=== PATIENT | female | born 1975 | race Asian ===

== ENCOUNTER 2023-05-18 22:04 | Emergency (ER) | payer SELFPAY ==
[~2023-05-18] VITALS: Ht 154.9 cm; Wt 54.4 kg
[2023-05-18 22:24] VITALS: TEMP 98.2
[2023-05-19 00:21] LABS: APPEARANCE,URINE SLIGHTLY CLOUDY (CLEAR); BILIRUBIN,URINE NEGATIVE (NEGATIVE); BLOOD, URINE NEGATIVE Ery/uL (NEGATIVE); COLOR,URINE YELLOW (YELLOW); KETONES,URINE 1+ mg/dL (NEGATIVE); LEUKOCYTE ESTERASE ,URINE NEGATIVE (NEGATIVE); NITRITE, URINE NEGATIVE (NEGATIVE); PREGNANCY TEST URINE QUAL NEGATIVE (NEGATIVE); PROTEIN,URINE NEGATIVE (NEGATIVE); UGLUCOSE NEGATIVE (NEGATIVE)
[2023-05-19 00:23] LABS: ADD URINE CULTURE NO; BACTERIA,URINE Rare /HPF (None Seen); RBC,URINE 0-2 /HPF (0-2); SQUAMOUS EPITHELIAL CELL,UR Few /HPF (None Seen); WBC,URINE 0-2 /HPF (0-3)
[2023-05-19 00:54] VITALS: BP 142/78; O2SAT 99
== END 2023-05-19 00:54 | disposition home or self-care (01) ==
LOC: ER 22:10
DX: S13.8XXA Sprain of joints and ligaments of other parts of neck, initial encounter (principal); R10.2 Pelvic and perineal pain; V89.2XXA Person injured in unspecified motor-vehicle accident, traffic, initial encounter; Y93.89 Activity, other specified; Y92.89 Other specified places as the place of occurrence of the external cause; Y99.8 Other external cause status
CPT/HCPCS: 70450-TC; 72125-TC; 81001; 84703-TC